=== PATIENT | female | born 1980 | race Caucasian/White ===

== ENCOUNTER 2024-01-06 20:02 | Inpatient (IN) | payer BC ==
[2024-01-06] MEDS ORDERED: Sodium Chloride 0.9% 10 ML Syringe FLUSH PRN (20:35)
[2024-01-06] MEDS: Metoclopramide 10 MG/2 ML SDV IVPUSH ONE (21:41)
[2024-01-06] MEDS: HYDROmorphone 0.5 MG/0.5 ML Syringe IVPUSH ONE (21:41)
[2024-01-06 21:42] LABS: BASOPHILS ABSOLUTE AUTO 0.1 K/mm3 (0.0-0.2); BASOPHILS PERCENT AUTO 0.7 % (0.0-1.0); EOSINOPHILS ABSOLUTE AUTO 0.1 K/mm3 (0.0-0.4); HEMATOCRIT 36.5 % (37.0-47.0); HEMOGLOBIN 11.4 gm/dl (12.0-16.0); IMMATURE GRAN ABSOLUTE AUTO 0.03 K/mm3 (0.00-0.05); IMMATURE GRAN PERCENT AUTO 0.3 % (0.0-0.4); LYMPHOCYTES ABSOLUTE AUTO 2.2 K/mm3 (1.0-4.8); LYMPHOCYTES PERCENT AUTO 22.4 % (24.0-44.0); MEAN CORPUSCULAR HEMOGLOBIN 27.8 pg (28.0-32.0); MEAN CORPUSCULAR HGB CONC 31.2 g/dl (32.0-36.0); MEAN PLATELET VOLUME 10.6 fl (9.4-12.3); MONOCYTES ABSOLUTE AUTO 0.6 K/mm3 (0.0-0.8); MONOCYTES PERCENT AUTO 6.4 % (0.0-8.0); NEUTROPHILS ABSOLUTE AUTO 6.7 K/mm3 (1.8-7.7); NEUTROPHILS PERCENT AUTO 69.2 % (41.0-71.0); PLATELET COUNT,PLT 327 K/mm3 (150-400); WHITE BLOOD CELL COUNT,WBC 9.63 K/mm3 (3.9-11.3)
[2024-01-06] MEDS: Sodium Chloride 0.9% 1,000 ML IV STA (21:43)
[2024-01-06] MEDS: Iopamidol 612 MG/ML 100 ML Bottle IVPUSH ONE (22:04)
[2024-01-06 22:18] LABS: A/G RATIO 1.3 (1-2)
[2024-01-06 22:22] LABS: APPEARANCE,URINE SLT CLOUDY (Clear); BILIRUBIN,URINE 1+ (Negative); COLOR,URINE YELLOW (Yellow); GLUCOSE,URINE NEGATIVE (Negative); KETONES,URINE 1+ (Negative); LEUKOCYTE ESTERASE,URINE NEGATIVE (Negative); NITRITE,URINE NEGATIVE (Negative); OCCULT BLOOD,URINE NEGATIVE (Negative); PH,URINE 5.5 (5.0-8.0); PROTEIN,URINE 1+ (Negative); UROBILINOGEN,URINE 0.2 (0.2-1.0)
[2024-01-06 22:30] LABS: BACTERIA,URINE MODERATE /hpf (FEW); MUCUS,URINE FEW /hpf (FEW); RBC,URINE 0-5 /hpf (0-5); WBC,URINE 0-5 /hpf (0-5)
[2024-01-06 22:32] LABS: ALBUMIN 4.3 g/dl (3.4-5.0); ANION GAP 16.5 (5-15); BILIRUBIN TOTAL 0.3 mg/dL (0.2-1.0); BUN/CREATININE RATIO 12.5 (14-18); C-REACTIVE PROTEIN 0.41 mg/dL (<0.30); CALCIUM 9.8 mg/dL (8.5-10.1); CREATININE 1.2 mg/dL (0.55-1.02); EST CRCL DRUG DOSING (CG) 61.61 mL/min; POTASSIUM,K 3.5 mEq/L (3.5-5.1); PROTEIN TOTAL,TP 7.7 g/dl (6.4-8.2)
[2024-01-07 01:50] LABS: AMPHETAMINES SCREEN, URINE PRESUMPTIVE POSITIVE (CUTOFF=500); BARBITURATE SCREEN,URINE NEGATIVE (CUTOFF=200); BENZODIAZEPINES SCREEN,URINE NEGATIVE (CUTOFF=150); METHAMPHETAMINES SCREEN, URINE NEGATIVE (CUTOFF=500)
[2024-01-07 01:51] LABS: METHADONE SCREEN, URINE NEGATIVE (CUTOFF=200)
[2024-01-07 01:58] LABS: BUPRENORPHINE SCREEN,URINE NEGATIVE (CUTOFF=10); OXYCODONE SCREEN,URINE PRESUMPTIVE POSITIVE (CUT0FF=100); THC SCREEN,URINE 20 NG/ML PRESUMPTIVE POSITIVE (CUTOFF=50)
[2024-01-07] MEDS: Metoprolol Tartrate 5 MG/5 ML SDV IVPUSH ONE (02:01)
[2024-01-07] MEDS: hydrALAZINE 20 MG/ML SDV IVPUSH ONE (02:02)
[2024-01-07] MEDS: niCARdipine HCl 25 MG in Sodium Chloride 0.9% 250 ML IV SCH (03:29)
[2024-01-07] MEDS: LORazepam 2 MG/ML SDV IVPUSH ONE (04:37)
[2024-01-07] MEDS ORDERED: ClonazePAM 0.5 MG Tab PO PRN (07:55)
[2024-01-07 08:22] LABS: BUN/CREATININE RATIO 9.1 (14-18); CALCIUM 8.9 mg/dL (8.5-10.1); CREATININE 1.1 mg/dL (0.55-1.02); EST CRCL DRUG DOSING (CG) 67.21 mL/min
[2024-01-07] MEDS ORDERED: ALPRAZolam 1 MG Tab PO PRN ×2 (08:34→08:35)
[2024-01-07] MEDS ORDERED: ALPRAZolam 1 MG Tab PO ONE (08:45)
[2024-01-07] MEDS: ALPRAZolam 1 MG Tab PO ONE (09:28)
[2024-01-07] MEDS: busPIRone 15 MG Tab PO SCH (09:28)
[2024-01-07] MEDS: Potassium Chloride 20 MEQ Tab.ER PO ONE (09:28)
[2024-01-07] MEDS ORDERED: Ondansetron 4 MG/2 ML SDV IV PRN (09:29)
[2024-01-07] MEDS ORDERED: Sennosides/Docusate Sodium 50-8.6 MG Tab PO PRN (09:29)
[2024-01-07] MEDS: Acetaminophen 325 MG Tab PO PRN (11:45)
[2024-01-07] MEDS: Ondansetron 4 MG Tab.DIS PO PRN (11:50)
[2024-01-07] MEDS ORDERED: Naloxone 0.4 MG/ML SDV IVPUSH PRN (12:30)
[2024-01-07] MEDS ORDERED: HYDROmorphone 0.5 MG/0.5 ML Syringe IVPUSH PRN (12:30)
[2024-01-07] MEDS: amLODIPine 5 MG Tab PO SCH (13:31)
[2024-01-07] MEDS: ClonazePAM 0.5 MG Tab PO PRN (13:31)
[2024-01-07] MEDS: Enoxaparin 40 MG/0.4 ML Syringe SUBCUT SCH (13:55)
[2024-01-07] MEDS: Magnesium Sulfate/Water 4 GM in Premix Bag 1 BAG IV ONE (13:55)
[2024-01-07] MEDS ORDERED: Melatonin 3 MG Tab PO PRN (21:00)
[2024-01-07] MEDS ORDERED: QUEtiapine 25 MG Tab PO SCH (21:00)
== END 2024-01-07 14:15 | disposition still patient (30) | DRG 199 ==
LOC: JD.ED 20:02 → JD.ICU 01-07 02:34
PROVIDERS: ADMIT Emergency Medicine; ATTEND Student in an Organized Health Care Education/Training Program
DX: I16.1 Hypertensive emergency (principal); N17.9 Acute kidney failure, unspecified; N83.201 Unspecified ovarian cyst, right side; I10 Essential (primary) hypertension; E86.0 Dehydration; F19.10 Other psychoactive substance abuse, uncomplicated; Z86.16 Personal history of COVID-19; Z88.0 Allergy status to penicillin; Z88.8 Allergy status to other drugs, medicaments and biological substances; Z88.5 Allergy status to narcotic agent; Z79.899 Other long term (current) drug therapy; Z98.84 Bariatric surgery status
CPT/HCPCS: 36415; 70450; 70450-26; 74177; 74177-26; 76830; 76830-26; 80048; 80053; 80306; 81001; 83690; 83735; 84100; 84703; 85025; 86140; 93005; 96361; 96374; 96375; 99285-25; A9270-GY; J0360; J1170; J2060; J2765; J3490; J7030; J7050; Q9967